=== PATIENT | male | born 1965 | race Caucasian/White ===

== ENCOUNTER → 2022-01-26 | Emergency (ER) | payer OTHER ==
[~2022-01-26] VITALS: Ht 182.9 cm; Wt 102.1 kg
== END | disposition home or self-care (01) ==
LOC: ER 10:09
DX: S20.219A Contusion of unspecified front wall of thorax, initial encounter (principal); W18.30XA Fall on same level, unspecified, initial encounter; Y93.9 Activity, unspecified; Y92.89 Other specified places as the place of occurrence of the external cause; Y99.9 Unspecified external cause status